=== PATIENT | male | born 1985 | race Caucasian/White ===

== ENCOUNTER 2020-05-14 15:47 | Emergency (ER) | payer SELFPAY ==
[~2020-05-14] VITALS: Ht 177.8 cm; Wt 95.3 kg
[2020-05-14] MEDS ORDERED: SUMAtriptan SUCCINATE 25 MG TAB PO ONE (17:30)
[2020-05-14 18:04] VITALS: BP 141/89
== END 2020-05-14 20:28 | disposition home or self-care (01) ==
LOC: ER 15:47
DX: G43.909 Migraine, unspecified, not intractable, without status migrainosus (principal); F41.9 Anxiety disorder, unspecified
CPT/HCPCS: 70450

== ENCOUNTER 2021-01-10 07:27 | Emergency (ER) | payer SELFPAY ==
[~2021-01-10] VITALS: Ht 175.3 cm; Wt 93.0 kg
[2021-01-10] MEDS ORDERED: HYDROcodone-ACET 10/325MG TAB PO ONE (07:45)
[2021-01-10] MEDS ORDERED: KETOROLAC TROMETH 60MG/2ML VIAL IM ONE (07:45)
[2021-01-10 08:45] VITALS: BP 144/88
== END 2021-01-10 09:26 | disposition home or self-care (01) ==
LOC: ER 07:27
DX: S39.012A Strain of muscle, fascia and tendon of lower back, initial encounter (principal); F12.10 Cannabis abuse, uncomplicated; X50.0XXA Overexertion from strenuous movement or load, initial encounter; Y93.89 Activity, other specified; Y92.89 Other specified places as the place of occurrence of the external cause; Y99.8 Other external cause status
CPT/HCPCS: 74176; 81002; 96372; 99284; J1885

== ENCOUNTER 2021-05-18 16:26 | Emergency (ER) | payer BC ==
[~2021-05-18] VITALS: Ht 180.3 cm; Wt 83.9 kg
[2021-05-18 21:46] VITALS: BP 118/70
== END 2021-05-18 21:58 | disposition home or self-care (01) ==
LOC: ER 16:31
DX: R51.9 Headache, unspecified (principal); F42.8 Other obsessive-compulsive disorder; F12.10 Cannabis abuse, uncomplicated
CPT/HCPCS: 70450

== ENCOUNTER 2022-04-02 13:32 | Inpatient (IN) | payer BC ==
[~2022-04-02] VITALS: Ht 177.8 cm; Wt 78.1 kg
[2022-04-02] MEDS ORDERED: SODIUM CHLORIDE 0.9% 1,000 ML IV ONE (14:15)
[2022-04-02 14:35] LABS: Basophils # (auto) 0 10 ^3/uL (0-0.2); Basophils % (auto) 0.7 % (0.0-2.0); Eosinophils # (auto) 0.2 10 ^3/uL (0-0.8); Eosinophils % (auto) 3.8 % (0.0-7.0); Hematocrit 46.4 % (41.0-53.0); Hemoglobin 15.3 g/dL (13.5-17.5); Lymphocytes # (auto) 1.4 10 ^3/uL (0.4-5.4); Lymphocytes % (auto) 30.8 % (10.0-50.0); Mean Corpuscular Hemoglobin 31.7 pg (28.0-32.0); Mean Corpuscular Volume 96.1 fL (80.0-100.0); Monocytes # (auto) 0.5 10 ^3/uL (0-1.3); Monocytes % (auto) 10.5 % (0.0-12.0); Neutrophils # (auto) 2.4 10 ^3/uL (1.6-8.6); Neutrophils % (auto) 54.2 % (37.0-80.0); Red Blood Cells 4.83 10^6/uL (4.5-5.90); White Blood Cell 4.5 10^3/uL (4.4-10.8)
[2022-04-02 14:51] LABS: Calcium 9.1 mg/dL (8.5-10.1); Potassium 4.5 mmol/L (3.5-5.1)
[2022-04-02 14:54] LABS: BUN/Creatinine Ratio 20.6; Bilirubin, Total 0.6 mg/dL (0.2-1.0); Total Protein 7.6 g/dL (6.4-8.2)
[2022-04-02 15:01] LABS: INR 0.94 (0.9-1.15); Partial Thromboplastin Time 26.3 sec (24.6-33.4)
[2022-04-02] MEDS ORDERED: NITROGLYCERIN 0.4 MG SL TAB SL PRN (21:00)
[2022-04-02] MEDS ORDERED: MORPHINE SULFATE INJ 2 MG/ml SYRG IV PRN (21:00)
[2022-04-02] MEDS ORDERED: ONDANSETRON HCL 4 MG/2 ML VIAL IV PRN (21:00)
[2022-04-02] MEDS ORDERED: TEMAZEPAM 15 MG CAP PO PRN (21:00)
[2022-04-02] MEDS: APIXABAN 2.5 MG TAB PO SCH (22:12)
[2022-04-03 01:37] VITALS: BP 109/73
[2022-04-03 05:00] VITALS: BP 101/51
[2022-04-03 05:18] LABS: Basophils # (auto) 0 10 ^3/uL (0-0.2); Basophils % (auto) 0.7 % (0.0-2.0); Eosinophils # (auto) 0.3 10 ^3/uL (0-0.8); Eosinophils % (auto) 4.5 % (0.0-7.0); Hematocrit 45.2 % (41.0-53.0); Hemoglobin 15.2 g/dL (13.5-17.5); Lymphocytes # (auto) 1.9 10 ^3/uL (0.4-5.4); Lymphocytes % (auto) 32.1 % (10.0-50.0); Mean Corpuscular Hgb Conc. 33.6 g/dL (32.0-36.0); Mean Corpuscular Volume 95.2 fL (80.0-100.0); Monocytes # (auto) 0.8 10 ^3/uL (0-1.3); Neutrophils % (auto) 49.7 % (37.0-80.0); Nucleated Red Blood Cells % 0.1 %; Red Blood Cells 4.74 10^6/uL (4.5-5.90); Red Cell Distribution Width 13.1 % (11.8-14.3); White Blood Cell 5.9 10^3/uL (4.4-10.8)
[2022-04-03 05:27] LABS: Potassium 3.6 mmol/L (3.5-5.1)
[2022-04-03 05:33] LABS: BUN/Creatinine Ratio 16.7; Calcium 8.8 mg/dL (8.5-10.1)
[2022-04-03 07:04] LABS: Alcohol, Urine < 3.0 mg/dL (0-10); Amphetamine Screen, Urine NEGATIVE (NEGATIVE); Barbiturate Scree,Urine NEGATIVE (NEGATIVE); Benzodiazephine Screen, Urine NEGATIVE (NEGATIVE); Cannabinoid Screen, Urine NEGATIVE (NEGATIVE); Cocaine Screen, Urine NEGATIVE (NEGATIVE); Opiate Scree,Urine NEGATIVE (NEGATIVE); Phencyclidine Screen, Urine NEGATIVE (NEGATIVE)
[2022-04-03 08:30] VITALS: BP 97/60
[2022-04-03] MEDS ORDERED: ASPirin 81 mg TAB PO SCH (10:00)
[2022-04-03] MEDS ORDERED: PANTOPRAZOLE 40 MG TAB PO SCH (10:00)
[2022-04-03] MEDS: APIXABAN 2.5 MG TAB PO SCH (10:37)
[2022-04-03] MEDS ORDERED: AMIODARONE HCL 200 MG TAB PO ONE (11:30)
[2022-04-03] MEDS ORDERED: METOPROLOL SUCCINATE XL 50 MG TAB PO ONE (11:30)
[2022-04-03 12:47] VITALS: BP 109/65
[2022-04-03] MEDS: SODIUM CHLORIDE 0.9% 1,000 ML IV SCH (13:00)
[2022-04-03 16:53] VITALS: BP 101/70
[2022-04-03 22:00] VITALS: BP 106/65
[2022-04-03] MEDS: AMIODARONE HCL 200 MG TAB PO SCH (22:06)
[2022-04-04 05:00] VITALS: BP 99/63
[2022-04-04] MEDS: SODIUM CHLORIDE 0.9% 1,000 ML IV SCH (05:40)
[2022-04-04 06:14] LABS: Calcium 8.6 mg/dL (8.5-10.1); Potassium 4.2 mmol/L (3.5-5.1)
[2022-04-04 06:16] LABS: BUN/Creatinine Ratio 18.5
[2022-04-04 09:00] VITALS: BP 99/52
[2022-04-04] MEDS: AMIODARONE HCL 200 MG TAB PO SCH (09:49)
[2022-04-04] MEDS ORDERED: ASPirin 81 mg TAB PO SCH (10:00)
[2022-04-04] MEDS ORDERED: METOPROLOL SUCCINATE XL 50 MG TAB PO SCH (10:00)
[2022-04-04 12:30] VITALS: BP 105/71
[2022-04-04 12:36] VITALS: BP 111/70
[2022-04-04] MEDS ORDERED: METO25TA36 PO (13:50)
[2022-04-04] MEDS ORDERED: ASPI-325 PO (13:50)
[2022-04-04] MEDS ORDERED: AMIO200T33 PO (13:50)
== END 2022-04-04 18:22 | disposition home or self-care (01) | DRG 309 ==
LOC: ER 13:32 → TELE 20:52 → TELE-WESTW 04-03 01:22
PROVIDERS: ADMIT Nurse Practitioner; ATTEND Internal Medicine Nephrology
DX: I48.91 Unspecified atrial fibrillation (principal); D68.69 Other thrombophilia; N17.9 Acute kidney failure, unspecified; I95.9 Hypotension, unspecified; E78.5 Hyperlipidemia, unspecified; I10 Essential (primary) hypertension; Z20.822 Contact with and (suspected) exposure to COVID-19
CPT/HCPCS: 36415; 71045; 80048; 80053; 80307; 84443; 84484; 85025; 85610; 85730; 93005; 93306; 96360; G0378